=== PATIENT | male | born 1975 | race Two or more races ===

== ENCOUNTER 2017-09-08 13:20 | Emergency (ER) | payer MEDICAID ==
[~2017-09-08] VITALS: Ht 188 cm; Wt 74.8 kg
[2017-09-08 13:20] VITALS: BP 119/70
[2017-09-08] MEDS ORDERED: TRAMADOL HCL 50 MG TABLET ONE (14:43)
[2017-09-08] MEDS ORDERED: TRAMADOL HCL 50 MG TABLET PO ONE (15:00)
== END 2017-09-08 15:02 | disposition home or self-care (01) ==
LOC: ER 13:28
DX: M54.2 Cervicalgia (principal); M54.6 Pain in thoracic spine; R51 Headache; F17.200 Nicotine dependence, unspecified, uncomplicated
CPT/HCPCS: 99283; A4606; Z7610

== ENCOUNTER 2018-11-22 14:06 | Emergency (ER) | payer MEDICAID ==
[~2018-11-22] VITALS: Ht 182.9 cm; Wt 74.8 kg
[2018-11-22 14:21] VITALS: BP 134/77
== END 2018-11-22 15:02 | disposition home or self-care (01) ==
LOC: ER 14:11
DX: R53.1 Weakness (principal); F11.10 Opioid abuse, uncomplicated; F10.10 Alcohol abuse, uncomplicated; F17.200 Nicotine dependence, unspecified, uncomplicated; Y90.9 Presence of alcohol in blood, level not specified
CPT/HCPCS: 99281; 99406; A4606; Z7502